=== PATIENT | male | born 1950 | race Caucasian/White ===

== ENCOUNTER 2018-09-21 08:04 | Day surgery (SDC) | payer MEDICARE, BC, OTHER ==
[~2018-09-21 08:04] MED LIST: Lactated Ringers 1,000 ML IV SCH
[2018-09-21] MEDS ORDERED: fentaNYL 100 MCG/2 ML SDV ONE (08:25)
[2018-09-21] MEDS ORDERED: Propofol 200 MG/20 ML SDV ONE ×2 (08:25→10:53)
[2018-09-21] MEDS ORDERED: Ondansetron 4 MG/2 ML SDV ONE (08:25)
[2018-09-21] MEDS ORDERED: Midazolam 1 MG/ML 2 ML SDV ONE (08:26)
--- NOTE | 2018-09-21 08:59 | PCM.PREANE ---
Preanesthetic Assessment - Anesthesia/Transfusion/Family Hx Anesthesia History: Prior Anesthesia Without Reaction Family History of Anesthesia Reaction: No Transfusion History: Prior Transfusion Without Reaction - Review of Systems General: No Symptoms Pulmonary: No Symptoms Cardiovascular: No Symptoms Gastrointestinal: No Symptoms Neurological: No Symptoms Other: Reports: None - Physical Assessment NPO Status Date: 09/20/18 O2 Sat by Pulse Oximetry: 97 Respiratory Rate: 16 Vital Signs: Last Vital Signs Temp 97.9 F 09/21/18 08:36 Pulse 89 09/21/18 08:36 Resp 16 09/21/18 08:36 BP 122/69 09/21/18 08:36 Pulse Ox 97 09/21/18 08:36 Height: 5 ft 7.5 in Weight: 90.265 kg ASA Class: 2 Mental Status: Alert & Oriented x3 Airway Class: Mallampati = 2 Dentition: Reports: Dentures ROM/Head Extension: Full Lungs: Clear to Auscultation, Normal Respiratory Effort Cardiovascular: Regular Rate, Regular Rhythm - Allergies Allergies/Adverse Reactions: Allergies Allergy/AdvReac Type Severity Reaction Status Date / Time No Known Allergies Allergy Verified 09/17/18 11:39 - Blood Blood Available: No - Anesthesia Plan Pre-Op Medication Ordered: None - Acknowledgements Anesthesia Type Planned: General Anesthesia, MAC Pt an Appropriate Candidate for the Planned Anesthesia: Yes Alternatives and Risks of Anesthesia Discussed w Pt/Guardian: Yes Pt/Guardian Understands and Agrees with Anesthesia Plan: Yes Additional Comments: PMH: DM 1.5, smoker, hld, PLAN: mac/tiva PreAnesthesia Questionnaire HEENT History: Reports: Other (See Below) Other HEENT History: wears glasses, top and bottom dentures Cardiovascular History: Reports: High Cholesterol, Hypertension Respiratory History: Reports: None Gastrointestinal History: Reports: None Genitourinary History: Reports: None Musculoskeletal History: Reports: Other (See Below) 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 Neurological History: Reports: None Psychiatric History: Reports: None Endocrine/Metabolic History: Reports: Diabetes, Type II Hematologic History: Reports: Blood Transfusion(s) Immunologic History: Reports: None Oncologic (Cancer) History: Reports: None Dermatologic History: Reports: Other (See Below) - Past Surgical History Head Surgeries/Procedures: Reports: None HEENT Surgical History: Reports: None Cardiovascular Surgical History: Reports: None Respiratory Surgical History: Reports: None GI Surgical History: Reports: None Male Surgical History: Reports: None Endocrine Surgical History: Reports: None Neurological Surgical History: Reports: None Musculoskeletal Surgical History: Reports: None Oncologic Surgical History: Reports: None Dermatological Surgical History: Reports: Skin Graft, Other (See Below) - SUBSTANCE USE Smoking Status *Q: Current Every Day Smoker Tobacco Use Within Last Twelve Months: Cigarettes Recreational Drug Use History: No - HOME MEDS Home Medications: Home Meds Insulin Glarg,Human.Rec.Analog [Lantus Solostar] 25 units SUBCUT DAILY 09/17/18 [History] Moexipril HCl [Moexipril] 15 mg PO DAILY 09/17/18 [History] Pioglitazone HCl [Actos] 45 mg PO DAILY 09/17/18 [History] Sildenafil Citrate [Sildenafil] 1 - 5 tab PO ASDIRECTED PRN 09/17/18 [History] SitaGLIPtin [Januvia] 100 mg PO DAILY 09/17/18 [History] hydroCHLOROthiazide [Hydrochlorothiazide] 12.5 mg PO DAILY 09/17/18 [History] metFORMIN HCl [Metformin HCl] 4 tab PO DAILY 09/17/18 [History] - CURRENT (IN HOUSE) MEDS Current Meds: Current Medications Lactated Ringer's (Ringers, Lactated) 1,000 mls @ 125 mls/hr IV ASDIRECTED DENYS Last Admin: 09/21/18 08:47 Dose: 125 mls/hr Discontinued Medications Fentanyl (Sublimaze) Confirm Administered Dose 100 mcg .ROUTE .STK-MED ONE Stop: 09/21/18 08:26 Midazolam HCl (Versed 1 Mg/Ml) Confirm Administered Dose 2 mg .ROUTE .STK-MED ONE Stop: 09/21/18 08:27 Ondansetron HCl (Zofran) Confirm Administered Dose 4 mg .ROUTE .STK-MED ONE Stop: 09/21/18 08:26 Propofol (Diprivan 20 Ml) Confirm Administered Dose 200 mg .ROUTE .STK-MED ONE Stop: 09/21/18 08:26
--- NOTE | 2018-09-21 11:09 | PCM.OPNOTE ---
- General Post-Op/Procedure Note Date of Surgery/Procedure: 09/21/18 Operative Procedure(s): Colonoscopy with cold distal transverse colon polypectomy Pre Op Diagnosis: Desire for colorectal cancer screening Post-Op Diagnosis: Distal transverse colon polyp. Pancolonic diverticulosis. Anesthesia Technique: MAC (ASA II) Primary Surgeon: Camden Ramsey Condition: Good Free Text/Narrative:: DICTATION [id number] CPT CODE 62699
[2018-09-21] MEDS ORDERED: Lactated Ringers 1,000 ML IV SCH (11:15)
--- NOTE | 2018-09-21 11:18 | PCM48HPAN ---
Post Anesthesia Note - EVALUATION WITHIN 48HRS OF ANESTHETIC Vital Signs in Normal Range: Yes Patient Participated in Evaluation: Yes Respiratory Function Stable: Yes Airway Patent: Yes Cardiovascular Function Stable: Yes Hydration Status Stable: Yes Pain Control Satisfactory: Yes Nausea and Vomiting Control Satisfactory: Yes Mental Status Recovered: Yes Resp Rate: 16 - COMMENTS/OBSERVATIONS Free Text/Narrative:: direct back to phase 2
--- NOTE | 2018-09-22 09:05 | OR ---
SURGEON: Cmaden Ramsey M.D. DATE OF PROCEDURE: 09/21/2018 PROCEDURE PERFORMED: Colonoscopy with cold distal transverse colon polypectomy. ANESTHESIA: MAC. ASA CLASSIFICATION: II. PREOPERATIVE DIAGNOSIS: Colorectal cancer screening. POSTOPERATIVE DIAGNOSES: 1. Pancolonic diverticulosis. 2. Distal transverse colon polyp. DESCRIPTION OF PROCEDURE: The patient was taken to the endoscopy room and positioned on the endoscopy table in the left lateral decubitus position. Time-out was called for appropriate identification of the patient and procedure. Monitored anesthesia care was provided. The colonoscope was inserted into the rectum and advanced with minimal difficulty to the cecum. Despite multiple maneuvers, we could not get the colonoscope to retroflex in the cecum. The colonoscope was then straightened and slowly withdrawn. The cecum, ascending colon, hepatic flexure, transverse colon, splenic flexure, descending colon, sigmoid colon, and rectum were very well visualized. The patient does demonstrate pancolonic diverticulosis with diverticula being identified as proximal as the ascending colon. No stricture, spasm, or bleeding was noted. The colonoscope was withdrawn to the distal transverse colon, where a small polyp was encountered and removed with the cold biopsy forceps. There was no significant bleeding. The remainder of the descending colon, sigmoid colon, and rectum again showed significant diverticular change, but no stricture, spasm, bleeding, or tumor. Once the colonoscope was withdrawn to the rectum, it was retroflexed to visualize the anal orifice from above. No tumors, polyps, or acute hemorrhoidal changes were noted. The colonoscope was then straightened, the rectum aspirated, and the colonoscope removed. The patient tolerated the procedure well and was taken to recovery room in satisfactory condition. EDUARDO BLACKMAN /[id number]
== END 2018-09-21 11:22 | disposition home or self-care (01) ==
LOC: MW.SDS 08:04
PROVIDERS: ATTEND Surgery
DX: Z12.11 Encounter for screening for malignant neoplasm of colon (principal); K63.5 Polyp of colon; K57.30 Diverticulosis of large intestine without perforation or abscess without bleeding; I10 Essential (primary) hypertension; E11.9 Type 2 diabetes mellitus without complications; E78.00 Pure hypercholesterolemia, unspecified; F17.210 Nicotine dependence, cigarettes, uncomplicated; Z79.4 Long term (current) use of insulin; Z79.899 Other long term (current) drug therapy
CPT/HCPCS: 45380; 82962; J2250; J2405; J2704; J3010; J7120